=== PATIENT | female | born 1990 | race Caucasian/White ===

== ENCOUNTER 2019-09-21 17:45 | Emergency (ER) | payer BC ==
[~2019-09-21] VITALS: Ht 162.6 cm; Wt 47.2 kg
--- NOTE | 2019-09-21 18:08 | NUR ---
Pt bibhusband, c/o head, ear, bilateral hand pain, PT states "glass door fell on me last night", 8/10 pain scale, -ko. Pt aaox4, vss, breathing even and unlabored on room air w/ nad noted. Pt connected to the monitor and pox.
[2019-09-21] MEDS ORDERED: ACETAMINOPHEN ES 500 MG TABLET ONE (18:17)
--- NOTE | 2019-09-21 18:19 | NUR ---
pt taken to ct
[2019-09-21] MEDS ORDERED: ACETAMINOPHEN 325 MG TABLET PO ONE (18:30)
--- NOTE | 2019-09-21 18:40 | NUR ---
PT BACK FROM CT
--- NOTE | 2019-09-21 19:13 | NUR ---
Patient discharged to home in stable condition. Written and verbal after care instructions given. Patient verbalizes understanding of instruction.
[2019-09-21 19:14] VITALS: BP 115/71
== END 2019-09-21 19:15 | disposition home or self-care (01) ==
LOC: ER 17:51
DX: S06.0X0A Concussion without loss of consciousness, initial encounter (principal); S39.012A Strain of muscle, fascia and tendon of lower back, initial encounter; R51 Headache; W18.09XA Striking against other object with subsequent fall, initial encounter; Y93.89 Activity, other specified; Y92.89 Other specified places as the place of occurrence of the external cause; Y99.8 Other external cause status
CPT/HCPCS: 70450-TC